=== PATIENT | male | born 1965 | race African-American/Black ===

== ENCOUNTER 2016-06-11 18:56 | Emergency (ER) | payer MEDICAID ==
[~2016-06-11 18:56] MED LIST: AMOXICILLIN PO; B/P MED; KEFLEX500 M2 PO; MOMETASONE 0.1% TOP; MOTRIN PO; NAPROSYN PO; NAPROSYN500 MG PO; NO MEDICATIONS; ROBAXIN PO; TYLENOL #3 PO
== END 2016-06-11 18:57 | disposition home or self-care (01) ==
LOC: SED 18:56
DX: H10.32 Unspecified acute conjunctivitis, left eye (principal); H00.015 Hordeolum externum left lower eyelid; I10 Essential (primary) hypertension; F17.210 Nicotine dependence, cigarettes, uncomplicated
CPT/HCPCS: 99283

== ENCOUNTER 2016-07-12 09:33 | Emergency (ER) | payer MEDICAID | END 2016-07-12 10:01 | disposition home or self-care (01) | LOC: SED 09:33 | DX: H00.015 Hordeolum externum left lower eyelid (principal); I10 Essential (primary) hypertension | CPT/HCPCS: 99283 ==

== ENCOUNTER 2016-09-06 06:36 | Emergency (ER) | payer MEDICAID ==
--- NOTE | ~2016-09-06 | CR72 ---
[facility]. [facility] A Service of [facility] & [facility] RADIOLOGY TEXT RESULTS PATIENT: REGLA CRAWFORD LOCATION: SED : 67 UNIT #: [id number] AGE: [address]: Cydney Rivero MD SEX: M ORDER DR: [id number] [place] [id number] E MR#: [id number] Acc #: [id number] NAME: REGLA CRAWFORD : 1965 SEX: M STUDY DATE/TIME: 09/06/2016 7:06 UNIT: SED ROOM: STUDY DESCRIPTION: CR Chest Single View Portable Attending Physician: Cydney Rivero M.D. Ordering Physician: Cydney Rivero M.D. Primary Care Physician: John Aleman M.D. MEDICAL IMAGING REPORT This report is preliminary unless electronic signature is present. EXAM Portable chest. INDICATION Chest pain since 4:00 a.m. today. COMPARISON No comparison studies are available. FINDINGS Low-volume inspiration. There is no airspace consolidation. Heart size normal. Visualized osseous structures are unremarkable. IMPRESSION No active disease. Dictated by... Chris Ambrocio M.D. THIS IS AN ELECTRONICALLY VERIFIED REPORT Chris Ambrocio M.D. at 09/08/2016 12:10 PM DANIEL/néstor TD: 09/06/2016 10:06 JOB #: [id number] MEDICAL IMAGING REPORT Page 1 of 1
--- NOTE | ~2016-09-06 | EKG ---
PATIENT: REGLA CRAWFORD UNIT #: [id number] Ventricular Rate: 84 BPM Atrial Rate: 84 BPM P-R Interval: 172 ms QRS Duration: 80 ms Q-T Interval: 356 ms QTC Calculation(Bezet): 420 ms P [place]: 45 degrees Calculated R [place]: -29 degrees Calculated T [place]: 24 degrees Diagnosis Line: Normal sinus rhythm with sinus arrhythmia Diagnosis Line: Normal ECG Diagnosis Line: No previous ECGs available Diagnosis Line: Confirmed by LEN RICE MD ([id number]) on Diagnosis Line: 09/06/2016 10:59:02 AM INTERPRETING MD: DWAYNE NAIR
[2016-09-06] MEDS ORDERED: ZESTORETIC PO (06:45)
[2016-09-06] MEDS ORDERED: NORVASC PO (06:45)
[2016-09-06 07:11] LABS: BASOPHIL% 0.9 % (0-2.5); HEMATOCRIT 44.6 % (38.0-50.0); HEMOGLOBIN 14.5 gm/dL (13.0-16.0); LYMPHOCYTE# 1.2 X10e3 (1.0-3.5); MEAN CELL VOLUME 90.9 FL (83-96); MEAN CORPUSCULAR HEMOGLOBIN 29.5 PG (28-34); MEAN CORPUSCULAR HGB CONC 32.4 g/dL (30-36); MEAN PLATELET VOLUME 7.3 FL (6.5-11.5); MONOCYTE# 0.5 X10e3 (0-1.0); MONOCYTE% 11.6 % (3.0-12.0); NEUTROPHIL# 2.8 X10e3 (1.5-7.1); NEUTROPHIL% 60.5 % (40-75); PLATELET COUNT 176 X10e3 (140-420); RED CELL DISTRIBUTION WIDTH 15.1 % (11.0-15.5); WHITE BLOOD COUNT 4.6 X10e3 (4.0-10.5)
[2016-09-06 07:18] LABS: DIFF IND NO
[2016-09-06 07:21] LABS: POC - CKMB 2.7 ng/mL (0.0-7.9); POC - TROPONIN <0.05 ng/mL (<=0.05)
[2016-09-06 07:25] LABS: PROTHROMBIN TIME (PATIENT) 10.9 SECONDS (9.5-12.4)
[2016-09-06 07:33] LABS: ALBUMIN SERUM 4.2 g/dL (3.5-5.0); BILIRUBIN, DIRECT 0.1 mg/dL (0.0-0.2); BILIRUBIN,INDIRECT 0.4 mg/dL (0.0-0.9); BILIRUBIN,TOTAL 0.5 mg/dL (0.2-2.0); CALCIUM SERUM 9.2 mg/dL (8.4-10.2); GLOM FILT RATE Estimated 101.3 mL/min (>60); PARTIAL THROMBOPLASTIN TIME 28.2 SECONDS (25.6-38.1); POTASSIUM 4.2 mmol/L (3.5-5.1); PROTEIN TOTAL SERUM 7.7 g/dL (6.0-8.3)
[2016-09-06 09:04] LABS: POC - CKMB 2.4 ng/mL (0.0-7.9); POC - TROPONIN <0.05 ng/mL (<=0.05)
== END 2016-09-06 09:24 | disposition home or self-care (01) ==
LOC: SED 06:36
PROVIDERS: Student in an Organized Health Care Education/Training Program
DX: R07.89 Other chest pain (principal); K08.89 Other specified disorders of teeth and supporting structures; I10 Essential (primary) hypertension; F17.200 Nicotine dependence, unspecified, uncomplicated; Z79.899 Other long term (current) drug therapy
CPT/HCPCS: 36415; 71010; 80048; 80076; 82553; 84484; 85025; 85610; 85730; 93005; 96374; 99285; J1885

== ENCOUNTER → 2016-10-15 | Outpatient (CLI) | payer MEDICAID ==
[~2016-10-15] MED LIST changes: +NORVASC PO; +ZESTORETIC PO
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
--- NOTE | ~2016-10-15 | CR58 ---
[facility] A Service of [facility] RADIOLOGY TEXT RESULTS PATIENT: REGLA CRAWFORD LOCATION: [facility] : 67 UNIT #: [id number] AGE: [address]: John Aleman MD SEX: M ORDER DR: [id number] [place] [id number] O MR#: [id number] Acc #: [id number] NAME: REGLA CRAWFORD : 1965 SEX: M STUDY DATE/TIME: 10/15/2016 10:17 UNIT: SRAD ROOM: STUDY DESCRIPTION: CR Cervical Spine 2 or 3 Views Attending Physician: John Aleman M.D. Ordering Physician: John Aleman M.D. Primary Care Physician: John Aleman M.D. MEDICAL IMAGING REPORT This report is preliminary unless electronic signature is present. EXAM Cervical spine, 10/15/2016 HISTORY 51-year-old male with neck pain for 2 months. No specific injury. COMPARISON None. FINDINGS 4 views of the cervical spine demonstrate no acute fracture or subluxation. Vertebral body heights and alignment are normally maintained. Prevertebral soft tissues are normal. Atlantoaxial relationship normal. Cervicothoracic junction is unremarkable. There are moderate multilevel degenerative disc changes at C3-4, C4-5, C5-6, and C6-7. IMPRESSION 1. No acute cervical spine injury. 2. Moderate multilevel degenerative disc changes, detailed above. Dictated by... Jaime Reyes M.D. THIS IS AN ELECTRONICALLY VERIFIED REPORT Jaime Reyes M.D. at 10/16/2016 9:00 AM OSORIO/mark TD: 10/16/2016 03:18 JOB #: [id number] [facility] A Service of [facility] RADIOLOGY TEXT RESULTS PATIENT: REGLA CRAWFORD LOCATION: [facility] : 67 UNIT #: [id number] AGE: [address]: John Aleman MD SEX: M ORDER DR: MEDICAL IMAGING REPORT Page 1 of 1
== END | disposition home or self-care (01) ==
LOC: SRAD 10:11
DX: M54.9 Dorsalgia, unspecified (principal); M47.894 Other spondylosis, thoracic region; M41.9 Scoliosis, unspecified; M47.892 Other spondylosis, cervical region
CPT/HCPCS: 72040; 72070